=== PATIENT | female | born 1980 | race African-American/Black ===

== ENCOUNTER 2019-05-28 10:41 | Emergency (ER) | payer BC ==
[~2019-05-28] VITALS: Ht 165.1 cm; Wt 125.2 kg
[~2019-05-28 10:41] MED LIST: AFRIN MENTHOL S15 ML NS; ALBUTEROL; ALLEGRA; NOHOMEMEDICATIONS; ZPAK PO
[2019-05-28] MEDS ORDERED: NOHOMEMEDICATIONS (10:57)
[2019-05-28] MEDS ORDERED: NORCO 5-325 TA1 EAC1 PO (14:00)
[2019-05-28 14:46] VITALS: BP 152/88
== END 2019-05-28 14:47 | disposition home or self-care (01) ==
LOC: M.ERS 10:41
DX: S52.592A Other fractures of lower end of left radius, initial encounter for closed fracture (principal); S63.005A Unspecified dislocation of left wrist and hand, initial encounter; J45.909 Unspecified asthma, uncomplicated; W18.39XA Other fall on same level, initial encounter; Y93.68 Activity, volleyball (beach) (court); Y92.89 Other specified places as the place of occurrence of the external cause; Y99.8 Other external cause status